=== PATIENT | female | born 1940 | race American Indian/Alaskan Native ===

== ENCOUNTER 2019-08-30 17:14 | Inpatient (IN) | payer MEDICARE ==
--- NOTE | 2019-08-30 17:21 | Event Note ---
ED Screening Note Date of service: 08/30/19 Time: 17:17 ED Screening Note: 78 y o female with stage 3 kidney dz not on dialysis sent here by [facility] for low [address] [facility] This initial assessment/diagnostic orders/clinical plan/treatment(s) is/are subject to change based on patients health status, clinical progression and re- assessment by fellow clinical providers in the ED. Further treatment and workup at subsequent clinical providers discretion. Patient/guardian urged not to elope from the ED as their condition may be serious if not clinically assessed and managed. Initial orders include: ekg, labs
[2019-08-30 18:36] LABS: Hematocrit 37.8 % (30.3-42.9); Hemoglobin 13.1 gm/dl (10.1-14.3); Mean Corpuscular HGB Conc 35 % (30-34); Mean Corpuscular Volume 98 fl (79-97); Platelet Count 110 K/mm3 (140-440); Red Blood Count 3.87 M/mm3 (3.65-5.03); Red Cell Distribution Width 15.4 % (13.2-15.2)
[2019-08-30 18:49] LABS: Albumin 3.8 g/dL (3.9-5)
[2019-08-30 19:15] LABS: Basophils % (Manual) 0 % (0.0-1.8); Eosinophils % (Manual) 0 % (0.0-4.3); Platelet Estimate Consistent w Auto; Total Cells Counted 100
[2019-08-30 19:16] LABS: Ovalocytes Few; Target Cells 1+
[2019-08-30] MEDS ORDERED: POTASSIUM CHLORIDE ER 20 MEQ TAB PO ONE (22:22)
[2019-08-30] MEDS ORDERED: SODIUM CHLORIDE 0.9% 500 ML 500 ML IV ONE (22:23)
[2019-08-30] MEDS ORDERED: SODIUM CHLORIDE 0.9% 1000 ML 1,000 ML ONE (22:41)
[2019-08-30] MEDS: POTASSIUM CHLORIDE 10 MEQ 10 MEQ/100 ML BAG IV SCH (23:09)
--- NOTE | 2019-08-30 23:12 | Emergency Department Report ---
ED General Adult HPI - General Chief complaint: Recheck/Abnormal Lab/Rx Stated complaint: ABNORMAL LABS Time Seen by Provider: 08/30/19 22:21 Source: patient, family Mode of arrival: Ambulatory Limitations: No Limitations - History of Present Illness Initial comments: 78-year-old female of hypertension, CHF (on lasix and metolazone), and chronic atrial fibrillation on Xarelto presents to the hospital with complaints of hypokalemia. Patient had outpatient lab draw in preparation upcoming visit with Dr. Gunter in September. She received a call to go to the ER because her potassium is low. Patient denies muscle cramps, weakness, or any other symptoms and feels fine. She has leg edema which is chronic and unchanged. She denies shortness of breath. She's been compliant with her medications. PMD : [place] Diallo: Dr Gunter - Related Data Home Medications Medication Instructions Recorded Confirmed Last Taken Metoprolol Xl [Toprol Xl] 50 mg PO QDAY 07/01/13 07/01/13 Unknown amLODIPine [Norvasc] 10 mg PO DAILY 07/01/13 07/01/13 Unknown hydrALAZINE [Apresoline] 50 mg PO Q12H 07/01/13 07/01/13 Unknown Previous Rx's Medication Instructions Recorded Last Taken Type Meclizine [Antivert] 25 mg PO TID PRN #30 tablet 07/02/13 Unknown Rx Allergies Allergy/AdvReac Type Severity Reaction Status Date / Time Iupiffh-Qxt-Llu Reductase Allergy Unknown Verified 08/30/19 17:15 Inhibitor ED Review of Systems ROS: Stated complaint: ABNORMAL LABS Other details as noted in HPI Comment: All other systems reviewed and negative ED Past Medical Hx - Past Medical History Hx Hypertension: Yes Additional medical history: enlarged heart - Surgical History Additional Surgical History: hernia repair, csections, hyst - Social History Smoking Status: Never Smoker Substance Use Type: None - Medications Home Medications: Home Medications Medication Instructions Recorded Confirmed Last Taken Type Metoprolol Xl [Toprol Xl] 50 mg PO QDAY 07/01/13 07/01/13 Unknown History amLODIPine [Norvasc] 10 mg PO DAILY 07/01/13 07/01/13 Unknown History hydrALAZINE [Apresoline] 50 mg PO Q12H 07/01/13 07/01/13 Unknown History Meclizine [Antivert] 25 mg PO TID PRN #30 tablet 07/02/13 Unknown Rx ED Physical Exam - General Limitations: No Limitations - Other Other exam information: General: No acute distress Head: Atraumatic Eyes: normal appearance ENT: Moist mucous membranes Neck: Normal appearance, no midline tenderness Chest: Clear to auscultation bilaterally CV: Regular rate and rhythm Abdomen: Soft, normal bowel sounds, nontender, nondistended, no rebound or guarding Back: Normal inspection Extremity: b/l leg edema, full range of motion Neuro: Alert O x 3, no facial asymmetry, speech clear, no gross motor sensory deficit Psych: Appropriate behavior Skin: No rash ED Course Vital Signs 08/30/19 08/30/19 17:17 23:10 Temperature 97.5 F L 98.3 F Pulse Rate 60 53 L Respiratory 18 12 Rate Blood Pressure 134/74 Blood Pressure 133/57 [Left] O2 Sat by Pulse 99 97 Oximetry ED Medical Decision Making - Lab Data Result diagrams: 08/30/19 18:24 08/30/19 18:24 Lab Results 08/30/19 08/30/19 08/30/19 Range/Units 18:24 18:24 18:24 WBC 3.4 L (4.5-11.0) K/mm3 RBC 3.87 (3.65-5.03) M/mm3 Hgb 13.1 (10.1-14.3) gm/dl Hct 37.8 (30.3-42.9) % MCV 98 H (79-97) fl MCH 34 H (28-32) pg MCHC 35 H (30-34) % RDW 15.4 H (13.2-15.2) % Plt Count 110 L (140-440) K/mm3 Add Manual Diff Complete Total Counted 100 Seg Neuts % (Manual) 67.0 (40.0-70.0) % Band Neutrophils % 0 % Lymphocytes % (Manual) 21.0 (13.4-35.0) % Reactive Lymphs % (Man) 0 % Monocytes % (Manual) 12.0 H (0.0-7.3) % Eosinophils % (Manual) 0 (0.0-4.3) % Basophils % (Manual) 0 (0.0-1.8) % Metamyelocytes % 0 % Myelocytes % 0 % Promyelocytes % 0 % Blast Cells % 0 % Nucleated RBC % Not Reportable Seg Neutrophils # Man 2.3 (1.8-7.7) K/mm3 Band Neutrophils # 0.0 K/mm3 Lymphocytes # (Manual) 0.7 L (1.2-5.4) K/mm3 Abs React Lymphs (Man) 0.0 K/mm3 Monocytes # (Manual) 0.4 (0.0-0.8) K/mm3 Eosinophils # (Manual) 0.0 (0.0-0.4) K/mm3 Basophils # (Manual) 0.0 (0.0-0.1) K/mm3 Metamyelocytes # 0.0 K/mm3 Myelocytes # 0.0 K/mm3 Promyelocytes # 0.0 K/mm3 Blast Cells # 0.0 K/mm3 WBC Morphology Not Reportable Hypersegmented Neuts Not Reportable Hyposegmented Neuts Not Reportable Hypogranular Neuts Not Reportable Smudge Cells Not Reportable Toxic Granulation Not Reportable Toxic Vacuolation Not Reportable Dohle Bodies Not Reportable Pelger-Huet Anomaly Not Reportable Sameer Rods Not Reportable Platelet Estimate Consistent w auto Clumped Platelets Not Reportable Plt Clumps, EDTA Not Reportable Large Platelets Not Reportable Giant Platelets Not Reportable Platelet Satelliting Not Reportable Plt Morphology Comment Not Reportable RBC Morphology Not Reportable Dimorphic RBCs Not Reportable Polychromasia Not Reportable Hypochromasia Not Reportable Poikilocytosis Not Reportable Anisocytosis Not Reportable Microcytosis Not Reportable Macrocytosis Not Reportable Spherocytes Not Reportable Pappenheimer Bodies Not Reportable Sickle Cells Not Reportable Target Cells 1+ Tear Drop Cells Not Reportable Ovalocytes Few Helmet Cells Not Reportable Leonardo-[place] Bodies Not Reportable [place] Rings Not Reportable Vania Cells Not Reportable Bite Cells Not Reportable Crenated Cell Not Reportable Elliptocytes Not Reportable Acanthocytes (Spur) Not Reportable Rouleaux Not Reportable Hemoglobin C Crystals Not Reportable Schistocytes Not Reportable Malaria parasites Not Reportable Yahir Bodies Not Reportable Hem Pathologist Commnt No Sodium 132 L (137-145) mmol/L Potassium 2.2 L* (3.6-5.0) mmol/L Chloride 85.5 L (98-107) mmol/L Carbon Dioxide 28 (22-30) mmol/L Anion Gap 21 mmol/L BUN 27 H (7-17) mg/dL Creatinine 1.2 (0.7-1.2) mg/dL Estimated GFR 52 ml/min BUN/Creatinine Ratio 23 % Glucose 139 H (65-100) mg/dL Calcium 9.0 (8.4-10.2) mg/dL Magnesium 2.20 (1.7-2.3) mg/dL Total Bilirubin 3.20 H (0.1-1.2) mg/dL AST 57 H (5-40) units/L ALT 17 (7-56) units/L Alkaline Phosphatase 132 H (35-129) units/L Total Protein 7.7 (6.3-8.2) g/dL Albumin 3.8 L (3.9-5) g/dL Albumin/Globulin Ratio 1.0 % - EKG Data -: EKG Interpreted by Me (afib) Rate: normal (64) - Medical Decision Making Is presents to the hospital with asymptomatic hypokalemia. Hypokalemia is significant for likely secondary to diuretics. Patient treated with by mouth and IV potassium. Normal saline ordered to be given KVO when necessary burning with potassium administration. Case discussed with instructor wastewater treatment plant recommends admission. Hospitalist informed - Differential Diagnosis renal disease, diuretic use Critical Care Time: No Critical care attestation.: If time is entered above; I have spent that time in minutes in the direct care of this critically ill patient, excluding procedure time. ED Disposition Clinical Impression: Diuretic-induced hypokalemia, History of CHF (congestive heart failure), Chronic atrial fibrillation, Chronic anticoagulation Disposition: OP ADMIT IP TO THIS HOSP Is pt being admited?: Yes Condition: Stable Time of Disposition: 23:12 (Dr Montemayor/hosp)
[2019-08-30] MEDS ORDERED: POTASSIUM CHLORIDE 20 MEQ PACKET FEEDTUBE ONE (23:41)
[2019-08-30] MEDS ORDERED: ONDANSETRON 4 MG/2 ML INJ IV PRN (23:48)
[2019-08-30] MEDS ORDERED: ACETAMINOPHEN 325 MG TAB PO PRN (23:48)
--- NOTE | 2019-08-31 00:10 | History and Physical Report ---
<MEHNAZ NORRIS - Last Filed: 08/31/19 00:11> History of Present Illness Date of examination: 08/30/19 Date of admission: 08/30/2019 Chief complaint: Abnormal Labs (hypokalemia) History of present illness: 78 -year-old -[place] female with history of CHF, hypertension, A. fib on anticoagulation who presents to [facility] ED with complaints of hypokalemia. Pt recently completed outpatient labs in preparation for upcoming appointment with Carton Stamper (Dr. Gunter). Pt was found to be profoundly hypokalemic with potassium of 2.2. Pt is asymptomatic. She denies SOB, chest pain, palpitations, or muscle aches.cramps. She was advise to [facility] ED for further evaluation and treatment. Her PCP is Dr. Migel Castaneda. Past History Past Medical History: atrial fib (on Xarelto), heart failure, hypertension Past Surgical History: (cyst removal), hernia repair Social history: lives with family Family history: no significant family history Medications and Allergies Allergies Allergy/AdvReac Type Severity Reaction Status Date / Time Daiuskc-Vlf-Lkz Reductase Allergy Unknown Verified 08/30/19 17:15 Inhibitor Home Medications Medication Instructions Recorded Confirmed Last Taken Type Metoprolol Xl [Toprol Xl] 25 mg PO QDAY 07/01/13 08/31/19 Unknown History hydrALAZINE [Apresoline] 50 mg PO Q12H 07/01/13 08/31/19 Unknown History Furosemide [Lasix TAB] 1 tab PO DAILY 08/31/19 08/31/19 Unknown History Potassium Chloride [K-Dur] 1 tab PO DAILY 08/31/19 08/31/19 Unknown History Rivaroxaban [Xarelto] 1 tab PO DAILY 08/31/19 08/31/19 Unknown History metOLazone [Zaroxolyn] 1 tab PO DAILY 08/31/19 08/31/19 Unknown History Active Meds: Active Medications Acetaminophen (Tylenol) 650 mg PO Q4H PRN PRN Reason: Pain MILD(1-3)/Fever >100.5/IGLESIAS Potassium Chloride (Kcl 10meq/100ml) 10 meq in 100 mls @ 100 mls/hr IV Q1H HUNETR Stop: 08/31/19 00:59 Last Admin: 08/30/19 23:09 Dose: 100 mls/hr Documented by: Ondansetron HCl (Zofran) 4 mg IV Q6H PRN PRN Reason: Nausea And Vomiting Sodium Chloride (Sodium Chloride Flush Syringe 10 Ml) 10 ml IV BID HUNTER Sodium Chloride (Sodium Chloride Flush Syringe 10 Ml) 10 ml IV PRN PRN PRN Reason: LINE FLUSH Review of Systems All systems: negative Constitutional: weakness Cardiovascular: leg edema Exam - Physical Exam Narrative exam: Physical exam General appearance: Present: No acute distress, alert and oriented 3 within, well-developed, pleasant, older adult -Ind[place]ian female - EENT Eyes: Present: PERRL, EOM intact ENT: hearing intact, normal dentition - Neck Neck: Present: supple, normal ROM - Respiratory Respiratory effort: Non-labored Respiratory: Diminished bases - Cardiovascular Heart rate: 64(bpm) Rhythm: A. fib Heart Sounds: Present: S1 & S2. Absent: rub, click - Extremities Extremities: no ischemia, pulses intact, chronic ble pitting edema - Peripheral Assessment Peripheral Pulses: within normal limits - Abdominal General gastrointestinal: soft, non-tender, normal bowel sounds - Integumentary Integumentary: Present: warm, dry - Musculoskeletal Musculoskeletal: Able to move all extremities -Neurological Neurological: CN II-XII intact - Psychiatric Psychiatric: Appropriate for situation ,cooperative - Constitutional Vitals: Temp Pulse Resp BP Pulse Ox 98.3 F 57 L 16 133/57 98 08/30/19 23:10 08/30/19 23:16 08/30/19 23:16 08/30/19 23:16 08/30/19 23:16 Results - Labs CBC & Chem 7: 08/30/19 18:24 08/30/19 18:24 Labs: Laboratory Last Values WBC 3.4 K/mm3 (4.5-11.0) L 08/30/19 18:24 RBC 3.87 M/mm3 (3.65-5.03) 08/30/19 18:24 Hgb 13.1 gm/dl (10.1-14.3) 08/30/19 18:24 Hct 37.8 % (30.3-42.9) 08/30/19 18:24 MCV 98 fl (79-97) H 08/30/19 18:24 MCH 34 pg (28-32) H 08/30/19 18:24 MCHC 35 % (30-34) H 08/30/19 18:24 RDW 15.4 % (13.2-15.2) H 08/30/19 18:24 Plt Count 110 K/mm3 (140-440) L 08/30/19 18:24 Add Manual Diff Complete 08/30/19 18:24 Total Counted 100 08/30/19 18:24 Seg Neuts % (Manual) 67.0 % (40.0-70.0) 08/30/19 18:24 Band Neutrophils % 0 % 08/30/19 18:24 Lymphocytes % (Manual) 21.0 % (13.4-35.0) 08/30/19 18:24 Reactive Lymphs % (Man) 0 % 08/30/19 18:24 Monocytes % (Manual) 12.0 % (0.0-7.3) H 08/30/19 18:24 Eosinophils % (Manual) 0 % (0.0-4.3) 08/30/19 18:24 Basophils % (Manual) 0 % (0.0-1.8) 08/30/19 18:24 Metamyelocytes % 0 % 08/30/19 18:24 Myelocytes % 0 % 08/30/19 18:24 Promyelocytes % 0 % 08/30/19 18:24 Blast Cells % 0 % 08/30/19 18:24 Nucleated RBC % Not Reportable 08/30/19 18:24 Seg Neutrophils # Man 2.3 K/mm3 (1.8-7.7) 08/30/19 18:24 Band Neutrophils # 0.0 K/mm3 08/30/19 18:24 Lymphocytes # (Manual) 0.7 K/mm3 (1.2-5.4) L 08/30/19 18:24 Abs React Lymphs (Man) 0.0 K/mm3 08/30/19 18:24 Monocytes # (Manual) 0.4 K/mm3 (0.0-0.8) 08/30/19 18:24 Eosinophils # (Manual) 0.0 K/mm3 (0.0-0.4) 08/30/19 18:24 Basophils # (Manual) 0.0 K/mm3 (0.0-0.1) 08/30/19 18:24 Metamyelocytes # 0.0 K/mm3 08/30/19 18:24 Myelocytes # 0.0 K/mm3 08/30/19 18:24 Promyelocytes # 0.0 K/mm3 08/30/19 18:24 Blast Cells # 0.0 K/mm3 08/30/19 18:24 WBC Morphology Not Reportable 08/30/19 18:24 Hypersegmented Neuts Not Reportable 08/30/19 18:24 Hyposegmented Neuts Not Reportable 08/30/19 18:24 Hypogranular Neuts Not Reportable 08/30/19 18:24 Smudge Cells Not Reportable 08/30/19 18:24 Toxic Granulation Not Reportable 08/30/19 18:24 Toxic Vacuolation Not Reportable 08/30/19 18:24 Dohle Bodies Not Reportable 08/30/19 18:24 Pelger-Huet Anomaly Not Reportable 08/30/19 18:24 Sameer Rods Not Reportable 08/30/19 18:24 Platelet Estimate Consistent w auto 08/30/19 18:24 Clumped Platelets Not Reportable 08/30/19 18:24 Plt Clumps, EDTA Not Reportable 08/30/19 18:24 Large Platelets Not Reportable 08/30/19 18:24 Giant Platelets Not Reportable 08/30/19 18:24 Platelet Satelliting Not Reportable 08/30/19 18:24 Plt Morphology Comment Not Reportable 08/30/19 18:24 RBC Morphology Not Reportable 08/30/19 18:24 Dimorphic RBCs Not Reportable 08/30/19 18:24 Polychromasia Not Reportable 08/30/19 18:24 Hypochromasia Not Reportable 08/30/19 18:24 Poikilocytosis Not Reportable 08/30/19 18:24 Anisocytosis Not Reportable 08/30/19 18:24 Microcytosis Not Reportable 08/30/19 18:24 Macrocytosis Not Reportable 08/30/19 18:24 Spherocytes Not Reportable 08/30/19 18:24 Pappenheimer Bodies Not Reportable 08/30/19 18:24 Sickle Cells Not Reportable 08/30/19 18:24 Target Cells 1+ 08/30/19 18:24 Tear Drop Cells Not Reportable 08/30/19 18:24 Ovalocytes Few 08/30/19 18:24 Helmet Cells Not Reportable 08/30/19 18:24 Leonardo-[place] Bodies Not Reportable 08/30/19 18:24 [place] Rings Not Reportable 08/30/19 18:24 [place]wood Cells Not Reportable 08/30/19 18:24 Bite Cells Not Reportable 08/30/19 18:24 Crenated Cell Not Reportable 08/30/19 18:24 Elliptocytes Not Reportable 08/30/19 18:24 Acanthocytes (Spur) Not Reportable 08/30/19 18:24 Rouleaux Not Reportable 08/30/19 18:24 Hemoglobin C Crystals Not Reportable 08/30/19 18:24 Schistocytes Not Reportable 08/30/19 18:24 Malaria parasites Not Reportable 08/30/19 18:24 Yahir Bodies Not Reportable 08/30/19 18:24 Hem Pathologist Commnt No 08/30/19 18:24 Sodium 132 mmol/L (137-145) L 08/30/19 18:24 Potassium 2.2 mmol/L (3.6-5.0) L* 08/30/19 18:24 Chloride 85.5 mmol/L (98-107) L 08/30/19 18:24 Carbon Dioxide 28 mmol/L (22-30) 08/30/19 18:24 Anion Gap 21 mmol/L 08/30/19 18:24 BUN 27 mg/dL (7-17) H 08/30/19 18:24 Creatinine 1.2 mg/dL (0.7-1.2) 08/30/19 18:24 Estimated GFR 52 ml/min 08/30/19 18:24 BUN/Creatinine Ratio 23 % 08/30/19 18:24 Glucose 139 mg/dL (65-100) H 08/30/19 18:24 Calcium 9.0 mg/dL (8.4-10.2) 08/30/19 18:24 Magnesium 2.20 mg/dL (1.7-2.3) 08/30/19 18:24 Total Bilirubin 3.20 mg/dL (0.1-1.2) H 08/30/19 18:24 AST 57 units/L (5-40) H 08/30/19 18:24 ALT 17 units/L (7-56) 08/30/19 18:24 Alkaline Phosphatase 132 units/L (35-129) H 08/30/19 18:24 Total Protein 7.7 g/dL (6.3-8.2) 08/30/19 18:24 Albumin 3.8 g/dL (3.9-5) L 08/30/19 18:24 Albumin/Globulin Ratio 1.0 % 08/30/19 18:24 Assessment and Plan Assessment and plan: 78 -year-old -[place] female with history of CHF, hypertension, A. fib on anticoagulation who presents to [facility] ED with complaints of hypokalemia. Hypokalemia -Potassium on admission 2.2 -Received by mouth potassium 40 mEq X2, and IV potassium 20 mEq -Likely due to chronic Lasix and metolazone use -Continue to monitor replete prn -Continuous telemetry monitoring -Neurology consultation Hyponatremia -Likely pseudohyponatremia due to chronic diuretic use -mild Na 132 -Monitor I's and O's -Continue to monitor electrolyte and repleate prn HTN -Monitor BP -Resume home hypertensive meds once medication reconciliation has been updated A-fib -Anticoagulated on Xarelto Hx CHF -Resume HF meds once medication reconciliation has been updated DVT PPX -on Xarelto and SCD's Advance Directives: No VTE prophylaxis?: Chemical Plan of care discussed with patient/family: Yes <ALBA ROTH - Last Filed: 08/31/19 01:41> History of Present Illness Date of admission: 08/30/19 23:48 Medications and Allergies Active Meds: Active Medications Acetaminophen (Tylenol) 650 mg PO Q4H PRN PRN Reason: Pain MILD(1-3)/Fever >100.5/IGLESIAS Potassium Chloride (Kcl 10meq/100ml) 10 meq in 100 mls @ 100 mls/hr IV Q1H HUNTER Stop: 08/31/19 03:59 Ondansetron HCl (Zofran) 4 mg IV Q6H PRN PRN Reason: Nausea And Vomiting Sodium Chloride (Sodium Chloride Flush Syringe 10 Ml) 10 ml IV BID HUNTER Sodium Chloride (Sodium Chloride Flush Syringe 10 Ml) 10 ml IV PRN PRN PRN Reason: LINE FLUSH Exam - Constitutional Vitals: Temp Pulse Resp BP Pulse Ox 98.3 F 57 L 16 133/57 98 08/30/19 23:10 08/30/19 23:16 08/30/19 23:16 08/30/19 23:16 08/30/19 23:16 Results - Labs CBC & Chem 7: 08/30/19 18:24 08/30/19 18:24 Labs: Laboratory Last Values WBC 3.4 K/mm3 (4.5-11.0) L 08/30/19 18:24 RBC 3.87 M/mm3 (3.65-5.03) 08/30/19 18:24 Hgb 13.1 gm/dl (10.1-14.3) 08/30/19 18:24 Hct 37.8 % (30.3-42.9) 08/30/19 18:24 MCV 98 fl (79-97) H 08/30/19 18:24 MCH 34 pg (28-32) H 08/30/19 18:24 MCHC 35 % (30-34) H 08/30/19 18:24 RDW 15.4 % (13.2-15.2) H 08/30/19 18:24 Plt Count 110 K/mm3 (140-440) L 08/30/19 18:24 Add Manual Diff Complete 08/30/19 18:24 Total Counted 100 08/30/19 18:24 Seg Neuts % (Manual) 67.0 % (40.0-70.0) 08/30/19 18:24 Band Neutrophils % 0 % 08/30/19 18:24 Lymphocytes % (Manual) 21.0 % (13.4-35.0) 08/30/19 18:24 Reactive Lymphs % (Man) 0 % 08/30/19 18:24 Monocytes % (Manual) 12.0 % (0.0-7.3) H 08/30/19 18:24 Eosinophils % (Manual) 0 % (0.0-4.3) 08/30/19 18:24 Basophils % (Manual) 0 % (0.0-1.8) 08/30/19 18:24 Metamyelocytes % 0 % 08/30/19 18:24 Myelocytes % 0 % 08/30/19 18:24 Promyelocytes % 0 % 08/30/19 18:24 Blast Cells % 0 % 08/30/19 18:24 Nucleated RBC % Not Reportable 08/30/19 18:24 Seg Neutrophils # Man 2.3 K/mm3 (1.8-7.7) 08/30/19 18:24 Band Neutrophils # 0.0 K/mm3 08/30/19 18:24 Lymphocytes # (Manual) 0.7 K/mm3 (1.2-5.4) L 08/30/19 18:24 Abs React Lymphs (Man) 0.0 K/mm3 08/30/19 18:24 Monocytes # (Manual) 0.4 K/mm3 (0.0-0.8) 08/30/19 18:24 Eosinophils # (Manual) 0.0 K/mm3 (0.0-0.4) 08/30/19 18:24 Basophils # (Manual) 0.0 K/mm3 (0.0-0.1) 08/30/19 18:24 Metamyelocytes # 0.0 K/mm3 08/30/19 18:24 Myelocytes # 0.0 K/mm3 08/30/19 18:24 Promyelocytes # 0.0 K/mm3 08/30/19 18:24 Blast Cells # 0.0 K/mm3 08/30/19 18:24 WBC Morphology Not Reportable 08/30/19 18:24 Hypersegmented Neuts Not Reportable 08/30/19 18:24 Hyposegmented Neuts Not Reportable 08/30/19 18:24 Hypogranular Neuts Not Reportable 08/30/19 18:24 Smudge Cells Not Reportable 08/30/19 18:24 Toxic Granulation Not Reportable 08/30/19 18:24 Toxic Vacuolation Not Reportable 08/30/19 18:24 Dohle Bodies Not Reportable 08/30/19 18:24 Pelger-Huet Anomaly Not Reportable 08/30/19 18:24 Sameer Rods Not Reportable 08/30/19 18:24 Platelet Estimate Consistent w auto 08/30/19 18:24 Clumped Platelets Not Reportable 08/30/19 18:24 Plt Clumps, EDTA Not Reportable 08/30/19 18:24 Large Platelets Not Reportable 08/30/19 18:24 Giant Platelets Not Reportable 08/30/19 18:24 Platelet Satelliting Not Reportable 08/30/19 18:24 Plt Morphology Comment Not Reportable 08/30/19 18:24 RBC Morphology Not Reportable 08/30/19 18:24 Dimorphic RBCs Not Reportable 08/30/19 18:24 Polychromasia Not Reportable 08/30/19 18:24 Hypochromasia Not Reportable 08/30/19 18:24 Poikilocytosis Not Reportable 08/30/19 18:24 Anisocytosis Not Reportable 08/30/19 18:24 Microcytosis Not Reportable 08/30/19 18:24 Macrocytosis Not Reportable 08/30/19 18:24 Spherocytes Not Reportable 08/30/19 18:24 Pappenheimer Bodies Not Reportable 08/30/19 18:24 Sickle Cells Not Reportable 08/30/19 18:24 Target Cells 1+ 08/30/19 18:24 Tear Drop Cells Not Reportable 08/30/19 18:24 Ovalocytes Few 08/30/19 18:24 Helmet Cells Not Reportable 08/30/19 18:24 Leonardo-Flagstaff Bodies Not Reportable 08/30/19 18:24 [place] Rings Not Reportable 08/30/19 18:24 [place] Cells Not Reportable 08/30/19 18:24 Bite Cells Not Reportable 08/30/19 18:24 Crenated Cell Not Reportable 08/30/19 18:24 Elliptocytes Not Reportable 08/30/19 18:24 Acanthocytes (Spur) Not Reportable 08/30/19 18:24 Rouleaux Not Reportable 08/30/19 18:24 Hemoglobin C Crystals Not Reportable 08/30/19 18:24 Schistocytes Not Reportable 08/30/19 18:24 Malaria parasites Not Reportable 08/30/19 18:24 Yahir Bodies Not Reportable 08/30/19 18:24 Hem Pathologist Commnt No 08/30/19 18:24 Sodium 132 mmol/L (137-145) L 08/30/19 18:24 Potassium 2.2 mmol/L (3.6-5.0) L* 08/30/19 18:24 Chloride 85.5 mmol/L (98-107) L 08/30/19 18:24 Carbon Dioxide 28 mmol/L (22-30) 08/30/19 18:24 Anion Gap 21 mmol/L 08/30/19 18:24 BUN 27 mg/dL (7-17) H 08/30/19 18:24 Creatinine 1.2 mg/dL (0.7-1.2) 08/30/19 18:24 Estimated GFR 52 ml/min 08/30/19 18:24 BUN/Creatinine Ratio 23 % 08/30/19 18:24 Glucose 139 mg/dL (65-100) H 08/30/19 18:24 Calcium 9.0 mg/dL (8.4-10.2) 08/30/19 18:24 Magnesium 2.20 mg/dL (1.7-2.3) 08/30/19 18:24 Total Bilirubin 3.20 mg/dL (0.1-1.2) H 08/30/19 18:24 AST 57 units/L (5-40) H 08/30/19 18:24 ALT 17 units/L (7-56) 08/30/19 18:24 Alkaline Phosphatase 132 units/L (35-129) H 08/30/19 18:24 Total Protein 7.7 g/dL (6.3-8.2) 08/30/19 18:24 Albumin 3.8 g/dL (3.9-5) L 08/30/19 18:24 Albumin/Globulin Ratio 1.0 % 08/30/19 18:24 Assessment and Plan Assessment and plan: 78-year-old woman with a history of A. fib, CHF, hypertension was sent to the emergency room for evaluation for hypokalemia. Potassium repletion, agree with plan as stated above
[2019-08-31] MEDS: POTASSIUM CHLORIDE 10 MEQ 10 MEQ/100 ML BAG IV SCH ×5 (00:24→15:38)
[2019-08-31 05:26] LABS: Hemoglobin 12.2 gm/dl (10.1-14.3); Mean Corpuscular HGB Conc 34 % (30-34); Mean Corpuscular Volume 99 fl (79-97); Platelet Count 112 K/mm3 (140-440); Red Blood Count 3.66 M/mm3 (3.65-5.03); Red Cell Distribution Width 15.6 % (13.2-15.2)
[2019-08-31 05:48] LABS: Calcium 9.2 mg/dL (8.4-10.2)
[2019-08-31 06:17] LABS: Total Cells Counted 100
[2019-08-31 06:19] LABS: Anisocytosis Few
[2019-08-31 06:20] LABS: Large Platelets Few; Platelet Estimate Cons
[2019-08-31] MEDS ORDERED: METOPROLOL SUCCINATE XL 25 MG TAB PO SCH (10:00)
[2019-08-31] MEDS ORDERED: hydrALAZINE 25 MG TAB PO SCH (10:00)
--- NOTE | 2019-08-31 11:57 | Progress Note ---
Assessment and Plan Assessment and plan: Severe Hypokalemia -Likely due to chronic Lasix and metolazone use -Level improving on repletion, will monitor -Nephrology consulted Hyponatremia -Likely pseudohyponatremia due to chronic diuretic use -Level improved HTN -BP low normal -will hold her home BB and hydralazine -will monitor BP Chronic A-fib -pt is currently bradycardic, will hold her home BB -cont Xarelto Hx CHF with unknown EF -No acute exacerbation -Home medications on hold Leukopenia/thrombocytopenia -Will monitor levels DVT PPX -on Xarelto and SCD's Disposition: For possible discharge in 1-2 days if clinically stable History Interval history: Patient reports feeling better today. She has no new complaints. Hospitalist Physical - Constitutional Vitals: Temp Pulse Resp BP Pulse Ox 98.5 F 52 L 18 102/54 94 08/31/19 07:24 08/31/19 07:24 08/31/19 07:24 08/31/19 07:24 08/31/19 07:24 General appearance: Present: no acute distress - EENT Eyes: Present: PERRL, EOM intact ENT: hearing intact, clear oral mucosa - Neck Neck: Present: supple - Respiratory Respiratory: bilateral: CTA - Cardiovascular Rhythm: irregularly irregular Heart Sounds: Present: S1 & S2 - Extremities Extremity abnormal: edema (in BLE) - Abdominal General gastrointestinal: soft, non-tender, normal bowel sounds - Integumentary Integumentary: Present: warm, dry - Psychiatric Psychiatric: cooperative - Neurologic Neurologic: moves all extremities Results - Labs CBC & Chem 7: 08/31/19 04:50 08/31/19 04:50 Labs: Laboratory Last Values WBC 3.0 K/mm3 (4.5-11.0) L 08/31/19 04:50 RBC 3.66 M/mm3 (3.65-5.03) 08/31/19 04:50 Hgb 12.2 gm/dl (10.1-14.3) 08/31/19 04:50 Hct 36.0 % (30.3-42.9) 08/31/19 04:50 MCV 99 fl (79-97) H 08/31/19 04:50 MCH 33 pg (28-32) H 08/31/19 04:50 MCHC 34 % (30-34) 08/31/19 04:50 RDW 15.6 % (13.2-15.2) H 08/31/19 04:50 Plt Count 112 K/mm3 (140-440) L 08/31/19 04:50 Stearns % (Auto) Doctor Of Veterinary Medicine 08/31/19 04:50 Add Manual Diff Complete 08/31/19 04:50 Total Counted 100 08/31/19 04:50 Seg Neuts % (Manual) 48.0 % (40.0-70.0) 08/31/19 04:50 Band Neutrophils % 0 % 08/31/19 04:50 Lymphocytes % (Manual) 34.0 % (13.4-35.0) 08/31/19 04:50 Reactive Lymphs % (Man) 0 % 08/31/19 04:50 Monocytes % (Manual) 14.0 % (0.0-7.3) H 08/31/19 04:50 Eosinophils % (Manual) 2.0 % (0.0-4.3) 08/31/19 04:50 Basophils % (Manual) 2.0 % (0.0-1.8) H 08/31/19 04:50 Metamyelocytes % 0 % 08/31/19 04:50 Myelocytes % 0 % 08/31/19 04:50 Promyelocytes % 0 % 08/31/19 04:50 Blast Cells % 0 % 08/31/19 04:50 Nucleated RBC % Not Reportable 08/31/19 04:50 Seg Neutrophils # Man 1.4 K/mm3 (1.8-7.7) L 08/31/19 04:50 Band Neutrophils # 0.0 K/mm3 08/31/19 04:50 Lymphocytes # (Manual) 1.0 K/mm3 (1.2-5.4) L 08/31/19 04:50 Abs React Lymphs (Man) 0.0 K/mm3 08/31/19 04:50 Monocytes # (Manual) 0.4 K/mm3 (0.0-0.8) 08/31/19 04:50 Eosinophils # (Manual) 0.1 K/mm3 (0.0-0.4) 08/31/19 04:50 Basophils # (Manual) 0.1 K/mm3 (0.0-0.1) 08/31/19 04:50 Metamyelocytes # 0.0 K/mm3 08/31/19 04:50 Myelocytes # 0.0 K/mm3 08/31/19 04:50 Promyelocytes # 0.0 K/mm3 08/31/19 04:50 Blast Cells # 0.0 K/mm3 08/31/19 04:50 WBC Morphology Not Reportable 08/31/19 04:50 Hypersegmented Neuts Not Reportable 08/31/19 04:50 Hyposegmented Neuts Not Reportable 08/31/19 04:50 Hypogranular Neuts Not Reportable 08/31/19 04:50 Smudge Cells Not Reportable 08/31/19 04:50 Toxic Granulation Not Reportable 08/31/19 04:50 Toxic Vacuolation Not Reportable 08/31/19 04:50 Dohle Bodies Not Reportable 08/31/19 04:50 Pelger-Huet Anomaly Not Reportable 08/31/19 04:50 Sameer Rods Not Reportable 08/31/19 04:50 Platelet Estimate Cons 08/31/19 04:50 Clumped Platelets Not Reportable 08/31/19 04:50 Plt Clumps, EDTA Not Reportable 08/31/19 04:50 Large Platelets Few 08/31/19 04:50 Giant Platelets Not Reportable 08/31/19 04:50 Platelet Satelliting Not Reportable 08/31/19 04:50 Plt Morphology Comment Not Reportable 08/31/19 04:50 RBC Morphology Not Reportable 08/31/19 04:50 Dimorphic RBCs Not Reportable 08/31/19 04:50 Polychromasia Not Reportable 08/31/19 04:50 Hypochromasia Not Reportable 08/31/19 04:50 Poikilocytosis Not Reportable 08/31/19 04:50 Anisocytosis Few 08/31/19 04:50 Microcytosis Not Reportable 08/31/19 04:50 Macrocytosis Not Reportable 08/31/19 04:50 Spherocytes Not Reportable 08/31/19 04:50 Pappenheimer Bodies Not Reportable 08/31/19 04:50 Sickle Cells Not Reportable 08/31/19 04:50 Target Cells Not Reportable 08/31/19 04:50 Tear Drop Cells Not Reportable 08/31/19 04:50 Ovalocytes Not Reportable 08/31/19 04:50 Helmet Cells Not Reportable 08/31/19 04:50 Leonardo-Alzada Bodies Not Reportable 08/31/19 04:50 [place] Rings Not Reportable 08/31/19 04:50 [place] Cells Not Reportable 08/31/19 04:50 Bite Cells Not Reportable 08/31/19 04:50 Crenated Cell Not Reportable 08/31/19 04:50 Elliptocytes Not Reportable 08/31/19 04:50 Acanthocytes (Spur) Not Reportable 08/31/19 04:50 Rouleaux Not Reportable 08/31/19 04:50 Hemoglobin C Crystals Not Reportable 08/31/19 04:50 Schistocytes Not Reportable 08/31/19 04:50 Malaria parasites Not Reportable 08/31/19 04:50 Yahir Bodies Not Reportable 08/31/19 04:50 Hem Pathologist Commnt No 08/31/19 04:50 Sodium 135 mmol/L (137-145) L 08/31/19 04:50 Potassium 3.3 mmol/L (3.6-5.0) L D 08/31/19 04:50 Chloride 91.3 mmol/L (98-107) L 08/31/19 04:50 Carbon Dioxide 27 mmol/L (22-30) 08/31/19 04:50 Anion Gap 20 mmol/L 08/31/19 04:50 BUN 25 mg/dL (7-17) H 08/31/19 04:50 Creatinine 1.1 mg/dL (0.7-1.2) 08/31/19 04:50 Estimated GFR 58 ml/min 08/31/19 04:50 BUN/Creatinine Ratio 23 % 08/31/19 04:50 Glucose 87 mg/dL (65-100) 08/31/19 04:50 Calcium 9.2 mg/dL (8.4-10.2) 08/31/19 04:50 Magnesium 2.20 mg/dL (1.7-2.3) 08/30/19 18:24 Total Bilirubin 3.20 mg/dL (0.1-1.2) H 08/30/19 18:24 AST 57 units/L (5-40) H 08/30/19 18:24 ALT 17 units/L (7-56) 08/30/19 18:24 Alkaline Phosphatase 132 units/L (35-129) H 08/30/19 18:24 Total Protein 7.7 g/dL (6.3-8.2) 08/30/19 18:24 Albumin 3.8 g/dL (3.9-5) L 08/30/19 18:24 Albumin/Globulin Ratio 1.0 % 08/30/19 18:24 Active Medications - Current Medications Current Medications: Generic Name Dose Route Start Last Admin Trade Name Freq PRN Reason Stop Dose Admin Acetaminophen 650 mg 08/30/19 23:48 Tylenol PO Q4H PRN Pain MILD(1-3)/Fever >100.5/IGLESIAS Hydralazine HCl 50 mg 08/31/19 10:00 08/31/19 10:14 Apresoline PO 50 mg Q12HR HUNTER Administration Potassium Chloride 10 meq in 100 mls @ 100 mls/hr 08/31/19 12:00 Kcl 10meq/100ml IV 08/31/19 13:59 Q1H HUNTER Metoprolol Succinate 25 mg 08/31/19 10:00 08/31/19 10:14 Metoprolol Xl PO 25 mg QDAY HUNTER Administration Ondansetron HCl 4 mg 08/30/19 23:48 Zofran IV Q6H PRN Nausea And Vomiting Potassium Chloride 40 meq 08/31/19 12:19 K-Dur PO 08/31/19 12:20 ONCE ONE Rivaroxaban 15 mg 08/31/19 17:00 Xarelto PO DAILY@1700 [facility] Protocol Sodium Chloride 10 ml 08/31/19 10:00 08/31/19 10:14 Sodium Chloride Flush Syringe 10 Ml IV 10 ml BID HUNTER Administration Sodium Chloride 10 ml 08/30/19 23:48 Sodium Chloride Flush Syringe 10 Ml IV PRN PRN LINE FLUSH
[2019-08-31] MEDS ORDERED: POTASSIUM CHLORIDE ER 20 MEQ TAB PO ONE ×2 (12:19→15:23)
--- NOTE | 2019-08-31 14:19 | Consultation ---
History of Present Illness - Reason for Consult Consult date: 08/31/19 hypokalemia Requesting physician: MIGEL EDWARDS - History of Present Illness 78-year-old female of hypertension, CHF (on lasix and metolazone), and chronic atrial fibrillation on Xarelto presents to the hospital with complaints of hypokalemia. Patient had outpatient lab draw in preparation upcoming visit with Dr. Gunter in September. She received a call to go to the ER because her potassium is low. Patient denies muscle cramps, weakness, or any other symptoms and feels fine. She has leg edema which is chronic and unchanged. She denies shortness of breath. She's been compliant with her medications. PMD : Migel edwards, Nephro: Dr Gunter - Past Medical History Hx Hypertension: Yes Additional medical history: enlarged heart - Surgical History Additional Surgical History: hernia repair, csections, hyst - Social History Smoking Status: Never Smoker Substance Use Type: None - Past History Past Medical History: atrial fib (on Xarelto), heart failure, hypertension Past Surgical History: (cyst removal), hernia repair Social history: lives with family Family history: no significant family history Medications and Allergies Allergies Allergy/AdvReac Type Severity Reaction Status Date / Time Dgjgjkm-Oid-Yoy Reductase Allergy Unknown Verified 08/30/19 17:15 Inhibitor Home Medications Medication Instructions Recorded Confirmed Last Taken Type Metoprolol Xl [Toprol Xl] 25 mg PO QDAY 07/01/13 08/31/19 Unknown History hydrALAZINE [Apresoline] 50 mg PO Q12H 07/01/13 08/31/19 Unknown History Furosemide [Lasix TAB] 1 tab PO DAILY 08/31/19 08/31/19 Unknown History Potassium Chloride [K-Dur] 1 tab PO DAILY 08/31/19 08/31/19 Unknown History Rivaroxaban [Xarelto] 1 tab PO DAILY 08/31/19 08/31/19 Unknown History metOLazone [Zaroxolyn] 1 tab PO DAILY 08/31/19 08/31/19 Unknown History Active Meds: Active Medications Acetaminophen (Tylenol) 650 mg PO Q4H PRN PRN Reason: Pain MILD(1-3)/Fever >100.5/IGLESIAS Ondansetron HCl (Zofran) 4 mg IV Q6H PRN PRN Reason: Nausea And Vomiting Rivaroxaban (Xarelto) 15 mg PO DAILY@1700 [facility]; Protocol Sodium Chloride (Sodium Chloride Flush Syringe 10 Ml) 10 ml IV BID [facility] Last Admin: 08/31/19 10:14 Dose: 10 ml Documented by: Sodium Chloride (Sodium Chloride Flush Syringe 10 Ml) 10 ml IV PRN PRN PRN Reason: LINE FLUSH Review of Systems Constitutional: fatigue, weakness, malaise Exam - Vital Signs Vital signs: Vital Signs Temp Pulse Resp BP Pulse Ox 97.5 F L 60 18 134/74 99 08/30/19 17:17 08/30/19 17:17 08/30/19 17:17 08/30/19 17:17 08/30/19 17:17 - Physical Exam Narrative exam: General: No acute distress Head: Atraumatic Eyes: normal appearance ENT: Moist mucous membranes Neck: Normal appearance, no midline tenderness Chest: Clear to auscultation bilaterally CV: Regular rate and rhythm Abdomen: Soft, normal bowel sounds, nontender, nondistended, no rebound or guarding Back: Normal inspection Extremity: b/l leg edema, full range of motion Neuro: Alert O x 3, no facial asymmetry, speech clear, no gross motor sensory deficit Psych: Appropriate behavior Results - Lab Results 08/31/19 04:50 08/31/19 04:50 Most recent lab results Calcium 9.2 mg/dL (8.4-10.2) 08/31/19 04:50 Magnesium 2.20 mg/dL (1.7-2.3) 08/30/19 18:24 Assessment and Plan Impression: * Hypokalemia * Hyponatremia * Afib * HTN Plan: * replete k and mag prn * strict i/os * diuresis as needed * daily lytes * ok to dc in am k is stable
[2019-08-31] MEDS: RIVAROXABAN 15 MG TAB PO SCH ×2 (15:38→17:00)
[2019-09-01 06:05] LABS: Hematocrit 34.1 % (30.3-42.9); Hemoglobin 11.6 gm/dl (10.1-14.3); Mean Corpuscular HGB Conc 34 % (30-34); Mean Corpuscular Volume 99 fl (79-97); Platelet Count 108 K/mm3 (140-440); Red Blood Count 3.46 M/mm3 (3.65-5.03); Red Cell Distribution Width 15.6 % (13.2-15.2)
[2019-09-01 06:25] LABS: Calcium 8.7 mg/dL (8.4-10.2)
[2019-09-01] MEDS ORDERED: POTASSIUM CHLORIDE ER 20 MEQ TAB PO ONE (08:00)
[2019-09-01 09:10] VITALS: BP 118/64
--- NOTE | 2019-09-01 10:58 | Discharge Summary ---
Providers - Providers Date of Admission: 08/30/19 23:48 Date of discharge: 09/01/19 Attending physician: HUEY TY 08/30/19 23:03 Consult to Physician [CONS] Urgent Comment: Consulting Provider: ZULEYMA MATTHEWS Physician Instructions: Reason For Exam: hypokalemia, diuretic use Primary care physician: PANDA EDWARDS Hospitalization Reason for admission: Severe Hypokalemia Condition: Stable Hospital course: Final discharge diagnosis/Hospital course: Severe Hypokalemia -Likely due to chronic Lasix and metolazone use -Repleted and improved Hyponatremia -Likely pseudohyponatremia due to chronic diuretic use -Level improved Leukopenia/thrombocytopenia -Stable HTN Chronic A-fib Hx CHF with unknown EF -No acute exacerbation -Home medications on hold Patient was instructed by the computer operations specialist on how to take her diuretics at home before discharge and she verbalized understanding. Disposition: DC- TO HOME OR SELFCARE Time spent for discharge: 35 minutes Core Measure Documentation - Palliative Care Palliative Care/ Comfort Measures: Not Applicable - Core Measures Any of the following diagnoses?: none Exam - Constitutional Vitals: Temp Pulse Resp BP Pulse Ox 98.2 F 50 L 16 118/64 98 09/01/19 08:08 09/01/19 08:08 09/01/19 08:08 09/01/19 08:08 09/01/19 08:08 General appearance: Present: no acute distress, well-nourished - EENT Eyes: Present: PERRL, EOM intact ENT: hearing intact, clear oral mucosa - Neck Neck: Present: supple, normal ROM - Respiratory Respiratory effort: normal Respiratory: bilateral: CTA - Cardiovascular Rhythm: irregularly irregular Heart Sounds: Present: S1 & S2 - Extremities Extremity abnormal: edema (in BLE) - Abdominal General gastrointestinal: Present: soft, non-tender, non-distended, normal bowel sounds - Integumentary Integumentary: Present: clear, warm, dry - Musculoskeletal Musculoskeletal: gait normal, strength equal bilaterally - Psychiatric Psychiatric: cooperative - Neurologic Neurologic: moves all extremities Plan Follow up with: PANDA EDWARDS MD [Primary Care Provider] - 7 Days
--- NOTE | 2019-09-01 13:19 | Progress Note ---
Assessment and Plan Impression: * Hypokalemia * Hyponatremia * Afib * HTN Plan: * replete k and mag prn * strict i/os * diuresis as needed * daily lytes * ok to dc home, instruction on diuretics given * follow up dr murillo in one week Subjective Date of service: 09/01/19 Principal diagnosis: hypokalemia Interval history: resting in bed Objective - Exam Narrative Exam: General: No acute distress Head: Atraumatic Eyes: normal appearance ENT: Moist mucous membranes Neck: Normal appearance, no midline tenderness Chest: Clear to auscultation bilaterally CV: Regular rate and rhythm Abdomen: Soft, normal bowel sounds, nontender, nondistended, no rebound or guarding Back: Normal inspection Extremity: b/l leg edema, full range of motion Neuro: Alert O x 3, no facial asymmetry, speech clear, no gross motor sensory deficit Psych: Appropriate behavior - Vital Signs Vital signs: Vital Signs - 12hr 09/01/19 09/01/19 09/01/19 02:12 08:08 10:00 Temperature 99.2 F 98.2 F Pulse Rate 48 L 50 L 50 L Respiratory 16 16 Rate Blood Pressure 101/56 118/64 O2 Sat by Pulse 95 98 Oximetry - Lab 09/01/19 05:31 09/01/19 05:31 Most recent lab results Calcium 8.7 mg/dL (8.4-10.2) 09/01/19 05:31 Magnesium 2.20 mg/dL (1.7-2.3) 08/30/19 18:24 Medications & Allergies - Medications Allergies/Adverse Reactions: Allergies Facdsos-Fnf-Gfc Reductase Inhibitor Allergy (Verified 08/30/19 17:15) Unknown Home Medications: Home Medications Medication Instructions Recorded Confirmed Last Taken Type Metoprolol Xl [Metoprolol 25 mg PO QDAY 07/01/13 08/31/19 Unknown History SUCCINATE ER TAB] hydrALAZINE [Apresoline TAB] 50 mg PO Q12H 07/01/13 08/31/19 Unknown History Furosemide [Lasix TAB] 1 tab PO DAILY 08/31/19 08/31/19 Unknown History Potassium Chloride [K-Dur] 1 tab PO DAILY 08/31/19 08/31/19 Unknown History Rivaroxaban [Xarelto] 1 tab PO DAILY 08/31/19 08/31/19 Unknown History metOLazone [Zaroxolyn] 1 tab PO DAILY 08/31/19 08/31/19 Unknown History Active Medications: Generic Name Dose Route Start Last Admin Trade Name Freq PRN Reason Stop Dose Admin Acetaminophen 650 mg 08/30/19 23:48 Tylenol PO Q4H PRN Pain MILD(1-3)/Fever >100.5/IGLESIAS Ondansetron HCl 4 mg 08/30/19 23:48 Zofran IV Q6H PRN Nausea And Vomiting Rivaroxaban 15 mg 08/31/19 17:00 08/31/19 17:00 Xarelto PO Not Given DAILY@1700 [facility] Protocol Sodium Chloride 10 ml 08/31/19 10:00 09/01/19 10:22 Sodium Chloride Flush Syringe 10 Ml IV 10 ml BID HUNTER Administration Sodium Chloride 10 ml 08/30/19 23:48 Sodium Chloride Flush Syringe 10 Ml IV PRN PRN LINE FLUSH
== END 2019-09-01 11:40 | disposition home or self-care (01) | DRG 641 ==
LOC: ED 17:14 → 2B-ACE 23:48
PROVIDERS: ADMIT Internal Medicine; ATTEND Internal Medicine
DX: E87.6 Hypokalemia (principal); I13.0 Hypertensive heart and chronic kidney disease with heart failure and stage 1 through stage 4 chronic kidney disease, or unspecified chronic kidney disease; I48.20 Chronic atrial fibrillation, unspecified; E87.1 Hypo-osmolality and hyponatremia; I50.9 Heart failure, unspecified; N18.3 Chronic kidney disease, stage 3 (moderate); R60.0 Localized edema; Z79.01 Long term (current) use of anticoagulants; Z88.8 Allergy status to other drugs, medicaments and biological substances; Z79.899 Other long term (current) drug therapy; T50.1X5A Adverse effect of loop [high-ceiling] diuretics, initial encounter; D72.819 Decreased white blood cell count, unspecified; D69.6 Thrombocytopenia, unspecified; T50.2X5A Adverse effect of carbonic-anhydrase inhibitors, benzothiadiazides and other diuretics, initial encounter; Y92.89 Other specified places as the place of occurrence of the external cause
CPT/HCPCS: 36415; 80048; 80053; 83735; 84132; 85007; 85025; 85027; 93005; 93010; 96365; 96366; G0378; J3480; J7030

== ENCOUNTER 2019-09-13 09:08 | Observation (INO) | payer MEDICARE ==
--- NOTE | 2019-09-13 10:01 | Emergency Department Report ---
ED General Adult HPI - General Chief complaint: Recheck/Abnormal Lab/Rx Stated complaint: LOW POTASSIUM Time Seen by Provider: 09/13/19 09:35 Source: patient, family Mode of arrival: Ambulatory Limitations: No Limitations, Altered Mental Status - History of Present Illness Initial comments: This is a 78-year-old -[place] female presents to the emergency room with a low potassium. Past medical history congestive heart failure, atrial fibrillation, cardiomegaly, and chronic kidney disease stage III. Patient states she went to her carbon paste mixer operator Dr. Gunter yesterday and had labs drawn. She received a call this morning from nephrology office stating her potassium was low to come directly to the emergency room. Patient states she was discharged from this emergency room 2 weeks ago with similar symptoms. She reports taking potassium daily with the Lasix. Reports chronic bilateral lower extremity edema. She denies chest pain, palpitations, weakness, leg cramps, or shortness of breath. -: This morning Severity scale (0 -10): 0 Associated Symptoms: denies other symptoms Treatments Prior to Arrival: none - Related Data Home Medications Medication Instructions Recorded Confirmed Last Taken Furosemide [Lasix TAB] 40 mg PO BID 09/13/19 09/13/19 Unknown Metoprolol [Lopressor TAB] 25 mg PO QDAY 09/13/19 09/13/19 Unknown Potassium Chloride [Klor-Con 8] 20 meq PO BID 09/13/19 09/13/19 Unknown Rivaroxaban [Xarelto] 15 mg PO QDAY 09/13/19 09/13/19 Unknown Spironolactone [Aldactone] 25 mg PO BID 09/13/19 09/13/19 Unknown hydrALAZINE [Apresoline] 25 mg PO TID 09/13/19 09/13/19 Unknown Allergies Allergy/AdvReac Type Severity Reaction Status Date / Time Dkpowll-Iho-Xno Reductase Allergy Unknown Verified 09/13/19 09:11 Inhibitor ED Review of Systems ROS: Stated complaint: LOW POTASSIUM Other details as noted in HPI Constitutional: denies: chills, fever Respiratory: denies: cough, shortness of breath, wheezing Cardiovascular: edema. denies: chest pain, palpitations, dyspnea on exertion Gastrointestinal: denies: abdominal pain, nausea, diarrhea Musculoskeletal: denies: back pain, joint swelling, arthralgia Skin: denies: rash, lesions Neurological: denies: headache, weakness, paresthesias Psychiatric: denies: anxiety, depression ED Past Medical Hx - Past Medical History Hx Hypertension: Yes Additional medical history: enlarged heart HYPOKALEMIA - Surgical History Additional Surgical History: hernia repair, csections, hyst - Social History Smoking Status: Never Smoker Substance Use Type: None - Medications Home Medications: Home Medications Medication Instructions Recorded Confirmed Last Taken Type Furosemide [Lasix TAB] 40 mg PO BID 09/13/19 09/13/19 Unknown History Metoprolol [Lopressor TAB] 25 mg PO QDAY 09/13/19 09/13/19 Unknown History Potassium Chloride [Klor-Con 8] 20 meq PO BID 09/13/19 09/13/19 Unknown History Rivaroxaban [Xarelto] 15 mg PO QDAY 09/13/19 09/13/19 Unknown History Spironolactone [Aldactone] 25 mg PO BID 09/13/19 09/13/19 Unknown History hydrALAZINE [Apresoline] 25 mg PO TID 09/13/19 09/13/19 Unknown History ED Physical Exam - General Limitations: No Limitations General appearance: alert, in no apparent distress - Respiratory Respiratory exam: Present: normal lung sounds bilaterally. Absent: respiratory distress - Cardiovascular Cardiovascular Exam: Present: regular rate, normal rhythm. Absent: systolic murmur, diastolic murmur, rubs, gallop - GI/Abdominal GI/Abdominal exam: Present: soft, normal bowel sounds. Absent: distended, tenderness, guarding, rebound, rigid - Extremities Exam Extremities exam: Present: full ROM, normal capillary refill, pedal edema (+2 pitting). Absent: joint swelling, calf tenderness - Neurological Exam Neurological exam: Present: alert, oriented X3 - Psychiatric Psychiatric exam: Present: normal affect, normal mood - Skin Skin exam: Present: warm, dry, intact, normal color. Absent: rash ED Course Vital Signs 09/13/19 09/13/19 09/13/19 09:12 09:46 10:00 Temperature 97.6 F Pulse Rate 60 64 58 L Respiratory 16 14 14 Rate Blood Pressure 128/72 133/76 126/64 O2 Sat by Pulse 100 100 99 Oximetry 09/13/19 09/13/19 09/13/19 10:15 10:31 10:45 Temperature Pulse Rate 55 L Respiratory 13 Rate Blood Pressure 116/58 116/58 111/53 O2 Sat by Pulse 98 100 97 Oximetry 09/13/19 09/13/19 09/13/19 11:00 11:15 11:31 Temperature Pulse Rate 51 L 61 52 L Respiratory 14 12 13 Rate Blood Pressure 108/56 108/56 107/48 O2 Sat by Pulse 98 100 100 Oximetry - Reevaluation(s) Reevaluation #1: 09/13/19 11:02 Receive notification critical potassium level 2.3. Given potassium 20 mL to IV. Reevaluation #2: 09/13/19 11:44 A[address] Room [address] hospitalist Dr. Shay who agreed to admit patient to [facility] for hypokalemia. ED Medical Decision Making - Lab Data Result diagrams: 09/13/19 09:48 09/13/19 09:48 Lab Results 09/13/19 09/13/19 Range/Units 09:48 09:48 WBC 3.3 L (4.5-11.0) K/mm3 RBC 3.84 (3.65-5.03) M/mm3 Hgb 13.0 (10.1-14.3) gm/dl Hct 37.8 (30.3-42.9) % MCV 98 H (79-97) fl MCH 34 H (28-32) pg MCHC 34 (30-34) % RDW 15.7 H (13.2-15.2) % Plt Count 125 L (140-440) K/mm3 Sodium 135 L (137-145) mmol/L Potassium 2.3 L* (3.6-5.0) mmol/L Chloride 85.0 L (98-107) mmol/L Carbon Dioxide 30 (22-30) mmol/L Anion Gap 22 mmol/L BUN 22 H (7-17) mg/dL Creatinine 1.0 (0.7-1.2) mg/dL Estimated GFR > 60 ml/min BUN/Creatinine Ratio 22 % Glucose 86 (65-100) mg/dL Calcium 9.4 (8.4-10.2) mg/dL Total Bilirubin 4.10 H (0.1-1.2) mg/dL AST 51 H (5-40) units/L ALT 15 (7-56) units/L Alkaline Phosphatase 81 (35-129) units/L NT-Pro-B Natriuret Pep 5285 H (0-900) pg/mL Total Protein 8.0 (6.3-8.2) g/dL Albumin 4.0 (3.9-5) g/dL Albumin/Globulin Ratio 1.0 % - EKG Data -: No EKG Interpreted by Me (EKG interpreted by attending, atrial fibrillation) - Medical Decision Making Patient was examined by me. Patient is nontoxic appearing and stable. Vitals are normal. Past medical history of cardiomegaly, congestive heart failure, atrial fibrillation, and chronic kidney disease stage III. Labs obtained. Severe hypokalemia. Consulted attending. Given IV potassium 20 mL every. Consulted hospitalist Dr. Mcguire who agreed to admit patient to [facility] for Hypokalemia. Dr. Mcguire instructed to give potassium 40 mEq once. Patient currently receiving potassium 20 mEq IV. Additional order of potassium [address] for admission. - Differential Diagnosis metabolic acidosis Critical care attestation.: If time is entered above; I have spent that time in minutes in the direct care of this critically ill patient, excluding procedure time. ED Disposition Clinical Impression: Chronic atrial fibrillation, Diuretic-induced hypokalemia Disposition: OP ADMIT IP TO THIS HOSP Is pt being admited?: Yes Condition: Stable
[2019-09-13 10:03] LABS: Hematocrit 37.8 % (30.3-42.9); Mean Corpuscular HGB Conc 34 % (30-34); Mean Corpuscular Volume 98 fl (79-97); Platelet Count 125 K/mm3 (140-440); Red Blood Count 3.84 M/mm3 (3.65-5.03); Red Cell Distribution Width 15.7 % (13.2-15.2)
[2019-09-13 10:40] LABS: Alanine Aminotransferase 15 units/L (7-56); BUN/Creatinine Ratio 22; Blood Urea Nitrogen 22 mg/dL (7-17); Calcium 9.4 mg/dL (8.4-10.2); Hemolysis Index 0
--- NOTE | 2019-09-13 10:43 | XRay Report ---
CHEST 2 VIEWS INDICATION: swelling. COMPARISON: None. FINDINGS: Support devices: None. Heart: Prominent cardiomegaly. Lungs/Pleura: Mild vascular congestion and underlying COPD. Mild atelectasis versus scarring left mid zone. No significant pleural effusion. IMPRESSION: 1. Cardiomegaly with mild vascular congestion. 2. Underlying COPD. 3. Atelectasis versus scarring left mid zone. Signer Name: Joe Schuster MD Signed: 09/13/2019 10:39 AM Workstation Name: [id number]
[2019-09-13] MEDS: POTASSIUM CHLORIDE 10 MEQ 10 MEQ/100 ML BAG IV SCH ×4 (11:09→20:54)
[2019-09-13] MEDS ORDERED: POTASSIUM CHLORIDE ER 20 MEQ TAB PO ONE (14:30)
--- NOTE | 2019-09-13 14:40 | History and Physical Report ---
History of Present Illness Date of examination: 09/13/19 Date of admission: 09/13/19 11:47 Chief complaint: Abnormal Labs (hypokalemia) History of present illness: Patient is a 78-year-old female, with a past medical history of stroke, CHF, hypertension, CKD and A. fib who was sent to ED by her Clinical Transplant Coordinator (Dr. Gunter). Pt is a recent discharge 09/01/2019 for similar complaints. Pt had follow-up appointment yesterday, had labs drawn and resulted this morning. Patient was instructed to come to the ER after it was found that her potassium was 2.7. Pt is currently asymptomatic. She denies SOB, chest pain, palpitations, or muscle aches, cramps. Patient does complain of bilateral leg edema which she has had 2 years, she was seen by vascular surgeon (Dr. Cabrera) on Monday and was diagnosed with venous insufficiency, has upcoming surgery scheduled. Past History Past Medical History: atrial fib (10/2018), hypertension, liver disease (CHF, CKD Stage 3, Venous Insufficiency), stroke (10/2017) Past Surgical History: (cyst removal), hernia repair Social history: Lives alone Family history: cancer (prostate), hypertension Medications and Allergies Allergies Allergy/AdvReac Type Severity Reaction Status Date / Time Pknapvx-Iio-Dfz Reductase Allergy Unknown Verified 09/13/19 09:11 Inhibitor Home Medications Medication Instructions Recorded Confirmed Last Taken Type Furosemide [Lasix TAB] 40 mg PO BID 09/13/19 09/13/19 Unknown History Metoprolol [Lopressor TAB] 25 mg PO QDAY 09/13/19 09/13/19 Unknown History Potassium Chloride [Klor-Con 8] 20 meq PO BID 09/13/19 09/13/19 Unknown History Rivaroxaban [Xarelto] 15 mg PO QDAY 09/13/19 09/13/19 Unknown History Spironolactone [Aldactone] 25 mg PO BID 09/13/19 09/13/19 Unknown History hydrALAZINE [Apresoline] 25 mg PO TID 09/13/19 09/13/19 Unknown History Active Meds: Active Medications Potassium Chloride (Kcl 10meq/100ml) 10 meq in 100 mls @ 100 mls/hr IV Q1H HUNTER Stop: 12/06/19 15:59 Review of Systems Constitutional: no fever, no chills, no chronic pain Ears, nose, mouth and throat: no sinus pressure, no hoarseness, no sore throat, no headache, no vertigo Breasts: no swelling, no pain Cardiovascular: phlebitis, high blood pressure, no chest pain, no orthopnea, no lightheadedness Respiratory: no congestion, no wheezing, no pain on inspiration, no sleep apnea, no respiratory infections Gastrointestinal: no abdominal pain, no nausea, no vomiting Genitourinary Female: no pelvic pain, no flank pain, no difficulty voiding Menstruation: postmenopausal Rectal: no incontinence, no bleeding Musculoskeletal: no neck stiffness, no arm numbness/tingling, no low back pain, no leg numbness/tingling Integumentary: darkening of skin, no rash, no wounds, no jaundice Neurological: no head injury, no numbness, no tingling, no seizures, no change in speech, no change in mentation, no burning pain Psychiatric: no anxiety, no change in appetite, no suicidal ideation, no disorientation Endocrine: weight change Allergic/Immunologic: no wheezing, no persistent infections Exam - Constitutional Vitals: Temp Pulse Resp BP Pulse Ox 97.6 F 52 L 13 107/48 100 09/13/19 09:12 09/13/19 11:31 09/13/19 11:31 09/13/19 11:31 09/13/19 11:31 General appearance: Present: no acute distress - EENT Eyes: Present: PERRL ENT: hearing intact, clear oral mucosa - Neck Neck: Present: supple, normal ROM - Respiratory Respiratory effort: normal Respiratory: bilateral: CTA, diminished - Cardiovascular Rhythm: irregularly irregular Heart Sounds: Present: S1 & S2. Absent: rub, click - Extremities Extremities: pulses symmetrical, No edema Extremity abnormal: edema Peripheral Pulses: within normal limits - Abdominal General gastrointestinal: Present: soft, non-tender, non-distended, normal bowel sounds Female genitourinary: Present: normal - Integumentary Integumentary: Present: clear, warm, dry - Musculoskeletal Musculoskeletal: gait normal, strength equal bilaterally - Psychiatric Psychiatric: appropriate mood/affect, intact judgment & insight - Neurologic Neurologic: CNII-XII intact, moves all extremities Results - Labs CBC & Chem 7: 09/13/19 09:48 09/13/19 09:48 Labs: Laboratory Last Values WBC 3.3 K/mm3 (4.5-11.0) L 09/13/19 09:48 RBC 3.84 M/mm3 (3.65-5.03) 09/13/19 09:48 Hgb 13.0 gm/dl (10.1-14.3) 09/13/19 09:48 Hct 37.8 % (30.3-42.9) 09/13/19 09:48 MCV 98 fl (79-97) H 09/13/19 09:48 MCH 34 pg (28-32) H 09/13/19 09:48 MCHC 34 % (30-34) 09/13/19 09:48 RDW 15.7 % (13.2-15.2) H 09/13/19 09:48 Plt Count 125 K/mm3 (140-440) L 09/13/19 09:48 Sodium 135 mmol/L (137-145) L 09/13/19 09:48 Potassium 2.3 mmol/L (3.6-5.0) L* 09/13/19 09:48 Chloride 85.0 mmol/L (98-107) L 09/13/19 09:48 Carbon Dioxide 30 mmol/L (22-30) 09/13/19 09:48 Anion Gap 22 mmol/L 09/13/19 09:48 BUN 22 mg/dL (7-17) H 09/13/19 09:48 Creatinine 1.0 mg/dL (0.7-1.2) 09/13/19 09:48 Estimated GFR > 60 ml/min 09/13/19 09:48 BUN/Creatinine Ratio 22 % 09/13/19 09:48 Glucose 86 mg/dL (65-100) 09/13/19 09:48 Calcium 9.4 mg/dL (8.4-10.2) 09/13/19 09:48 Total Bilirubin 4.10 mg/dL (0.1-1.2) H 09/13/19 09:48 AST 51 units/L (5-40) H 09/13/19 09:48 ALT 15 units/L (7-56) 09/13/19 09:48 Alkaline Phosphatase 81 units/L (35-129) 09/13/19 09:48 NT-Pro-B Natriuret Pep 5285 pg/mL (0-900) H 09/13/19 09:48 Total Protein 8.0 g/dL (6.3-8.2) 09/13/19 09:48 Albumin 4.0 g/dL (3.9-5) 09/13/19 09:48 Albumin/Globulin Ratio 1.0 % 09/13/19 09:48 - Imaging and Cardiology EKG: report reviewed (Atrial fibrillation, old inferior infarct, old anterior infarct) Chest x-ray: report reviewed (Cardiomegaly with mild vascular congestion, underlying COPD, atelectasis versus scarring left mid zone) Assessment and Plan Assessment and plan: Hypokalemia -Potassium on admission 2.7 - IV potassium 20 mEq -Likely due to chronic Lasix and metolazone use -Patient saw Dr. Gunter yesterday, his plan is to DC metolazone and change to spirinolactone -Continue to monitor, replete prn -Continuous telemetry monitoring CHF -Trend labs -ECHO ordered -Cards consult A-fib -Anticoagulated on Xarelto HTN -Monitor BP -Resume home hypertensive meds Hyponatremia -Likely pseudohyponatremia due to chronic diuretic use -mild Na 135 -Monitor I's and O's -Continue to monitor electrolyte and repleate prn Venous insufficiency -Pressured stockings Thrombocytopenia -Continue to monitor labs DVT PPX -on Xarelto -SCD's VTE prophylaxis?: Mechanical Plan of care discussed with patient/family: Yes
[2019-09-13] MEDS ORDERED: ONDANSETRON 4 MG/2 ML INJ IV PRN (15:55)
[2019-09-13] MEDS ORDERED: ACETAMINOPHEN 325 MG TAB PO PRN (15:55)
[2019-09-13] MEDS ORDERED: D5W/0.9% NACL 1,000 ML IV SCH (16:00)
[2019-09-13] MEDS ORDERED: SODIUM CHLORIDE 0.9% 1000 ML 1,000 ML IV SCH (16:15)
[2019-09-13] MEDS ORDERED: POTASSIUM CHLORIDE ER 20 MEQ TAB PO SCH (18:38)
[2019-09-13] MEDS: hydrALAZINE 25 MG TAB PO SCH (20:32)
[2019-09-13] MEDS: SPIRONOLACTONE 25 MG TAB PO SCH (21:05)
[2019-09-13] MEDS: FUROSEMIDE 40 MG TAB PO SCH (21:06)
[2019-09-13] MEDS: POTASSIUM CHLORIDE ER 8 MEQ TAB PO SCH (23:36)
[2019-09-14 05:25] LABS: Hematocrit 34.3 % (30.3-42.9); Hemoglobin 11.8 gm/dl (10.1-14.3); Mean Corpuscular HGB Conc 35 % (30-34); Mean Corpuscular Volume 98 fl (79-97); Platelet Count 104 K/mm3 (140-440); Red Blood Count 3.49 M/mm3 (3.65-5.03); Red Cell Distribution Width 15.9 % (13.2-15.2)
[2019-09-14 05:44] LABS: BUN/Creatinine Ratio 22; Blood Urea Nitrogen 20 mg/dL (7-17); Calcium 8.9 mg/dL (8.4-10.2); Hemolysis Index 1
[2019-09-14] MEDS: hydrALAZINE 25 MG TAB PO SCH (07:39)
[2019-09-14] MEDS: FUROSEMIDE 40 MG TAB PO SCH (09:59)
[2019-09-14] MEDS ORDERED: METOPROLOL TARTRATE 25 MG TAB PO SCH (10:00)
[2019-09-14] MEDS: RIVAROXABAN 15 MG TAB PO SCH (10:01)
[2019-09-14] MEDS: SPIRONOLACTONE 25 MG TAB PO SCH (10:02)
[2019-09-14] MEDS: POTASSIUM CHLORIDE ER 8 MEQ TAB PO SCH ×2 (10:02→22:50)
[2019-09-14 10:16] LABS: Basophils % (Manual) 0 % (0.0-1.8); Total Cells Counted 100
[2019-09-14 10:18] LABS: Platelet Estimate Consistent w Auto; Target Cells Few
--- NOTE | 2019-09-14 10:44 | Consultation ---
History of Present Illness Consult date: 09/14/19 Requesting physician: ERICA HOPE Consult reason: congestive heart failure History of present illness: Ms. 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 She was asymptomatic on arrival and has no cardiac complaints on examination this morning. She follows with Dr. Novoa in our office. Echo from 09/14/2019 reviewed: EF 50 percent, dilated hypokinetic RV, dilated LA & RA, moderate LV thickening, pleural effusion, mild to moderate MR, severe TR, suspicion for amyloidosis. A stress test in 2009 found a mild reversible mid- to basal inferoseptal defect of unclear significance, but no angiographic evidence of ischemia. Past History Past Medical History: atrial fib (10/2018), hypertension, liver disease, stroke (10/2017), other (Venous insufficiency, CKD) Past Surgical History: (cyst removal), hernia repair Social history: Lives alone Family history: cancer (prostate), hypertension Medications and Allergies Allergies Allergy/AdvReac Type Severity Reaction Status Date / Time Aluwfrr-Iza-Xbq Reductase Allergy Unknown Verified 09/13/19 09:11 Inhibitor Home Medications Medication Instructions Recorded Confirmed Last Taken Type Furosemide [Lasix TAB] 40 mg PO BID 09/13/19 09/13/19 Unknown History Metoprolol [Lopressor TAB] 25 mg PO QDAY 09/13/19 09/13/19 Unknown History Potassium Chloride [Klor-Con 8] 20 meq PO BID 09/13/19 09/13/19 Unknown History Rivaroxaban [Xarelto] 15 mg PO QDAY 09/13/19 09/13/19 Unknown History Spironolactone [Aldactone] 25 mg PO BID 09/13/19 09/13/19 Unknown History hydrALAZINE [Apresoline] 25 mg PO TID 09/13/19 09/13/19 Unknown History Active Meds: Active Medications Acetaminophen (Tylenol) 650 mg PO Q4H PRN PRN Reason: Pain MILD(1-3)/Fever >100.5/IGLESIAS Furosemide (Lasix) 40 mg PO BID HUNTER Last Admin: 09/14/19 09:59 Dose: 40 mg Documented by: Hydralazine HCl (Apresoline) 25 mg PO TID [facility] Last Admin: 09/14/19 07:39 Dose: Not Given Documented by: Potassium Chloride (Kcl 10meq/100ml) 10 meq in 100 mls @ 100 mls/hr IV Q1H [facility] Stop: 09/14/19 10:59 Ondansetron HCl (Zofran) 4 mg IV Q8H PRN PRN Reason: Nausea And Vomiting Potassium Chloride (Klor-Con 8) 20 meq PO BID [facility] Last Admin: 09/14/19 10:02 Dose: 20 meq Documented by: Rivaroxaban (Xarelto) 15 mg PO QDAY [facility]; Protocol Last Admin: 09/14/19 10:01 Dose: 15 mg Documented by: Sodium Chloride (Sodium Chloride Flush Syringe 10 Ml) 10 ml IV BID [facility] Last Admin: 09/14/19 10:01 Dose: 10 ml Documented by: Sodium Chloride (Sodium Chloride Flush Syringe 10 Ml) 10 ml IV PRN PRN PRN Reason: LINE FLUSH Spironolactone (Aldactone) 25 mg PO BID [facility] Last Admin: 09/14/19 10:02 Dose: 25 mg Documented by: Review of Systems All systems: negative Physical Examination Last Vital Signs Temp 98.4 F 09/14/19 07:04 Pulse 57 L 09/14/19 10:02 Resp 18 09/14/19 07:04 BP 119/49 09/14/19 10:02 Pulse Ox 94 09/14/19 07:04 General appearance: no acute distress HEENT: Positive: PERRL Neck: Positive: neck supple Cardiac: Positive: Reg Rate and Rhythm Lungs: Positive: Normal Exam Neuro: Positive: Grossly Intact Abdomen: Positive: Unremarkable Female genitourinary: deferred Skin: Positive: Clear Musculoskeletal: Normal Range of Motion Extremities: Present: normal Results 09/14/19 04:22 09/14/19 04:22 CBC 09/14/19 Range/Units 04:22 WBC 2.4 L (4.5-11.0) K/mm3 RBC 3.49 L (3.65-5.03) M/mm3 Hgb 11.8 (10.1-14.3) gm/dl Hct 34.3 (30.3-42.9) % Plt Count 104 L (140-440) K/mm3 Comprehensive Metabolic Panel 09/13/19 09/14/19 09/14/19 Range/Units 09:48 00:45 04:22 Sodium 134 L (137-145) mmol/L Potassium 2.3 L* 3.5 L D 3.3 L (3.6-5.0) mmol/L Chloride 88.4 L (98-107) mmol/L Carbon Dioxide 27 (22-30) mmol/L BUN 20 H (7-17) mg/dL Creatinine 0.9 (0.7-1.2) mg/dL Glucose 102 H (65-100) mg/dL Calcium 8.9 (8.4-10.2) mg/dL - Imaging and Cardiology Echo: report reviewed (09/14/19: Echo from 09/14/2019 reviewed: EF 50 percent, dilated hypokinetic RV, dilated LA & RA, moderate LV thickening, pleural effusion, mild to moderate MR, severe TR, suspicion for amyloidosis. ) - EKG Interpretation EKG: sinus rhythm EKG interpretations - Telemetry EKG Rhythm: Sinus Rhythm Assessment and Plan Ms. Gomez is a 78 y/o female admitted with hypokalemia. She currently has no cardiac complaints. Bradycardia noted - will discontinue metoprolol. E chocardiogram concerning for cardiac amyloidosis - will ultimately refer to [facility] for further evaluation. Monitor and replete electrolytes PRN and continue other cardiac management. The patient has been seen in conjunction with Dr. Mccormick, who agrees with the assessment and plan. - Patient Problems (1) Diuretic-induced hypokalemia Current Visit: Yes Status: Acute (2) Chronic heart failure with preserved ejection fraction (HFpEF) Current Visit: Yes Status: Chronic (3) Atrial fibrillation Current Visit: Yes Status: Chronic (4) Chronic edema Current Visit: Yes Status: Chronic (5) History of CVA (cerebrovascular accident) Current Visit: Yes Status: Chronic (6) CKD (chronic kidney disease) Current Visit: Yes Status: Chronic (7) Hypertension Current Visit: Yes Status: Chronic
[2019-09-14] MEDS: POTASSIUM CHLORIDE 10 MEQ 10 MEQ/100 ML BAG IV SCH ×2 (11:26→12:47)
--- NOTE | 2019-09-14 12:20 | Progress Note ---
Assessment and Plan Assessment and plan: Hypokalemia -diuretics induced -improving on repletion, will monitor level -will check mg level Chronic diastolic HF with EF of 50% -no acute exacerbation -will hold her home diuretics for now due to the hypokalemia -ECHO showed EF of 50% and findings suspicious for cardiac amyloidosis -Cards consulted: will refer pt to [place] for the cardiac amyloidosis A-fib -now bradycardic, metoprolol d/ame -cont oral anticoagulation with Xarelto HTN -BP trended down -home anti-hypertensives held -monitor BP Hyponatremia -Likely due to chronic diuretic use -will monitor level Chronic leukopenia and thrombocytopenia -stable DVT ppx: pt is on xarelto Disp: for possible d/c in am if K level remains stable History Interval history: Pt has no new complaints. She denied sob or chest pain Hospitalist Physical - Constitutional Vitals: Temp Pulse Resp BP Pulse Ox 98.4 F 57 L 20 119/49 94 09/14/19 07:04 09/14/19 10:02 09/14/19 10:00 09/14/19 10:02 09/14/19 10:00 General appearance: Present: no acute distress - EENT Eyes: Present: PERRL, EOM intact ENT: clear oral mucosa - Neck Neck: Present: supple - Respiratory Respiratory effort: normal Respiratory: bilateral: CTA, diminished - Cardiovascular Rhythm: regular (with bradycardia) Heart Sounds: Present: S1 & S2 - Extremities Extremity abnormal: edema (chronic in BLE) - Abdominal General gastrointestinal: soft, non-tender, normal bowel sounds - Integumentary Integumentary: Present: warm, dry - Psychiatric Psychiatric: cooperative - Neurologic Neurologic: moves all extremities Results - Labs CBC & Chem 7: 09/14/19 04:22 09/14/19 04:22 Labs: Laboratory Last Values WBC 2.4 K/mm3 (4.5-11.0) L 09/14/19 04:22 RBC 3.49 M/mm3 (3.65-5.03) L 09/14/19 04:22 Hgb 11.8 gm/dl (10.1-14.3) 09/14/19 04:22 Hct 34.3 % (30.3-42.9) 09/14/19 04:22 MCV 98 fl (79-97) H 09/14/19 04:22 MCH 34 pg (28-32) H 09/14/19 04:22 MCHC 35 % (30-34) H 09/14/19 04:22 RDW 15.9 % (13.2-15.2) H 09/14/19 04:22 Plt Count 104 K/mm3 (140-440) L 09/14/19 04:22 Roberts % (Auto) Group Social Worker 09/14/19 04:22 Add Manual Diff Complete 09/14/19 04:22 Total Counted 100 09/14/19 04:22 Seg Neuts % (Manual) 56.0 % (40.0-70.0) 09/14/19 04:22 Band Neutrophils % 0 % 09/14/19 04:22 Lymphocytes % (Manual) 23.0 % (13.4-35.0) 09/14/19 04:22 Reactive Lymphs % (Man) 5.0 % 09/14/19 04:22 Monocytes % (Manual) 14.0 % (0.0-7.3) H 09/14/19 04:22 Eosinophils % (Manual) 2.0 % (0.0-4.3) 09/14/19 04:22 Basophils % (Manual) 0 % (0.0-1.8) 09/14/19 04:22 Metamyelocytes % 0 % 09/14/19 04:22 Myelocytes % 0 % 09/14/19 04:22 Promyelocytes % 0 % 09/14/19 04:22 Blast Cells % 0 % 09/14/19 04:22 Nucleated RBC % 1.0 % (0.0-0.9) H 09/14/19 04:22 Seg Neutrophils # Man 1.3 K/mm3 (1.8-7.7) L 09/14/19 04:22 Band Neutrophils # 0.0 K/mm3 09/14/19 04:22 Lymphocytes # (Manual) 0.6 K/mm3 (1.2-5.4) L 09/14/19 04:22 Abs React Lymphs (Man) 0.1 K/mm3 09/14/19 04:22 Monocytes # (Manual) 0.3 K/mm3 (0.0-0.8) 09/14/19 04:22 Eosinophils # (Manual) 0.0 K/mm3 (0.0-0.4) 09/14/19 04:22 Basophils # (Manual) 0.0 K/mm3 (0.0-0.1) 09/14/19 04:22 Metamyelocytes # 0.0 K/mm3 09/14/19 04:22 Myelocytes # 0.0 K/mm3 09/14/19 04:22 Promyelocytes # 0.0 K/mm3 09/14/19 04:22 Blast Cells # 0.0 K/mm3 09/14/19 04:22 WBC Morphology Not Reportable 09/14/19 04:22 Hypersegmented Neuts Not Reportable 09/14/19 04:22 Hyposegmented Neuts Not Reportable 09/14/19 04:22 Hypogranular Neuts Not Reportable 09/14/19 04:22 Smudge Cells Not Reportable 09/14/19 04:22 Toxic Granulation Not Reportable 09/14/19 04:22 Toxic Vacuolation Not Reportable 09/14/19 04:22 Dohle Bodies Not Reportable 09/14/19 04:22 Pelger-Huet Anomaly Not Reportable 09/14/19 04:22 Sameer Rods Not Reportable 09/14/19 04:22 Platelet Estimate Consistent w auto 09/14/19 04:22 Clumped Platelets Not Reportable 09/14/19 04:22 Plt Clumps, EDTA Not Reportable 09/14/19 04:22 Large Platelets Not Reportable 09/14/19 04:22 Giant Platelets Not Reportable 09/14/19 04:22 Platelet Satelliting Not Reportable 09/14/19 04:22 Plt Morphology Comment Not Reportable 09/14/19 04:22 RBC Morphology Not Reportable 09/14/19 04:22 Dimorphic RBCs Not Reportable 09/14/19 04:22 Polychromasia Not Reportable 09/14/19 04:22 Hypochromasia Not Reportable 09/14/19 04:22 Poikilocytosis Not Reportable 09/14/19 04:22 Anisocytosis Not Reportable 09/14/19 04:22 Microcytosis Not Reportable 09/14/19 04:22 Macrocytosis Not Reportable 09/14/19 04:22 Spherocytes Not Reportable 09/14/19 04:22 Pappenheimer Bodies Not Reportable 09/14/19 04:22 Sickle Cells Not Reportable 09/14/19 04:22 Target Cells Few 09/14/19 04:22 Tear Drop Cells Not Reportable 09/14/19 04:22 Ovalocytes Not Reportable 09/14/19 04:22 Helmet Cells Not Reportable 09/14/19 04:22 Leonardo-Culbertson Bodies Not Reportable 09/14/19 04:22 [place] Rings Not Reportable 09/14/19 04:22 Vania Cells Not Reportable 09/14/19 04:22 Bite Cells Not Reportable 09/14/19 04:22 Crenated Cell Not Reportable 09/14/19 04:22 Elliptocytes Not Reportable 09/14/19 04:22 Acanthocytes (Spur) Few 09/14/19 04:22 Rouleaux Not Reportable 09/14/19 04:22 Hemoglobin C Crystals Not Reportable 09/14/19 04:22 Schistocytes Not Reportable 09/14/19 04:22 Malaria parasites Not Reportable 09/14/19 04:22 Yahir Bodies Not Reportable 09/14/19 04:22 Hem Pathologist Commnt No 09/14/19 04:22 Sodium 134 mmol/L (137-145) L 09/14/19 04:22 Potassium 3.3 mmol/L (3.6-5.0) L 09/14/19 04:22 Chloride 88.4 mmol/L (98-107) L 09/14/19 04:22 Carbon Dioxide 27 mmol/L (22-30) 09/14/19 04:22 Anion Gap 22 mmol/L 09/14/19 04:22 BUN 20 mg/dL (7-17) H 09/14/19 04:22 Creatinine 0.9 mg/dL (0.7-1.2) 09/14/19 04:22 Estimated GFR > 60 ml/min 09/14/19 04:22 BUN/Creatinine Ratio 22 % 09/14/19 04:22 Glucose 102 mg/dL (65-100) H 09/14/19 04:22 Calcium 8.9 mg/dL (8.4-10.2) 09/14/19 04:22 Total Bilirubin 4.10 mg/dL (0.1-1.2) H 09/13/19 09:48 AST 51 units/L (5-40) H 09/13/19 09:48 ALT 15 units/L (7-56) 09/13/19 09:48 Alkaline Phosphatase 81 units/L (35-129) 09/13/19 09:48 NT-Pro-B Natriuret Pep 5285 pg/mL (0-900) H 09/13/19 09:48 Total Protein 8.0 g/dL (6.3-8.2) 09/13/19 09:48 Albumin 4.0 g/dL (3.9-5) 09/13/19 09:48 Albumin/Globulin Ratio 1.0 % 09/13/19 09:48 Active Medications - Current Medications Current Medications: Generic Name Dose Route Start Last Admin Trade Name Freq PRN Reason Stop Dose Admin Acetaminophen 650 mg 09/13/19 15:55 Tylenol PO Q4H PRN Pain MILD(1-3)/Fever >100.5/IGLESIAS Furosemide 40 mg 09/13/19 22:00 09/14/19 09:59 Lasix PO 40 mg BID HUNTER Administration Hydralazine HCl 25 mg 09/13/19 20:00 09/14/19 07:39 Apresoline PO Not Given TID HUNTER Ondansetron HCl 4 mg 09/13/19 15:55 Zofran IV Q8H PRN Nausea And Vomiting Potassium Chloride 20 meq 09/13/19 22:00 09/14/19 10:02 Klor-Con 8 PO 20 meq BID HUNTER Administration Rivaroxaban 15 mg 09/14/19 10:00 09/14/19 10:01 Xarelto PO 15 mg QDAY HUNTER Administration Protocol Sodium Chloride 10 ml 09/13/19 22:00 09/14/19 10:01 Sodium Chloride Flush Syringe 10 Ml IV 10 ml BID HUNTER Administration Sodium Chloride 10 ml 09/13/19 15:55 Sodium Chloride Flush Syringe 10 Ml IV PRN PRN LINE FLUSH Spironolactone 25 mg 09/13/19 22:00 09/14/19 10:02 Aldactone PO 25 mg BID HUNTER Administration Nutrition/Malnutrition Assess - Dietary Evaluation Nutrition/Malnutrition Findings: Nutrition Notes Start: 09/14/19 10:05 Freq: Status: Active Protocol: Document 09/14/19 10:05 LP (Rec: 09/14/19 10:13 LP [id number]) Nutrition Notes Need for Assessment generated from: church worker,MST Initial or Follow up Assessment Current Diagnosis CKD(stage I-IV),Hypertension, Heart Failure Current Diet Cardiac Labs/Tests Na 134 K 3.3 BUN 20 Bili 4.1 Pertinent Medications Erich yates 8 Height 4 ft 10 in Weight 54.431 kg Lawson Body Weight (kg) 40.90 BMI 25.0 Intake Prior to Admission Excellent Weight Status Appropriate Subjective/Other Information Screen for MST. Pt states wt fluctuates due to fluid accumulation. 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 Noted slight temporal wasting. Consumed 90% of breakfast this AM. Burn Absent Trauma Absent Current % PO Good (75-100%) Minimum of two criteria Yes Muscle Mass Mild Depletion (non-severe) Fluid Accumulation Moderate to Severe (severe) #1 Nutrition Diagnosis Malnutrition Etiology advanced age, CHF As Evidenced by Signs and Symptoms Pt noted with muscle depletion and fluid accumulation Is patient on ventilator? No Is Patient Ambulatory and/or Out of Bed No REE-([facility]-confined to bed) [phone] Calculation Used for Recommendations [facility] Additional Notes Protein needs are 65-82g (1.2- 1.5g/kg) Fluid needs are 1ml/kcal Nutrition Intervention Change Diet Order: Continue cardiac Goal #1 Meet at least 80% of kcal and protein needs Anticipated Discharge Needs: Cardiac diet Follow-Up By: 09/17/19 Additional Comments Follow for intakes
[2019-09-15 06:31] LABS: BUN/Creatinine Ratio 17; Blood Urea Nitrogen 17 mg/dL (7-17); Calcium 8.7 mg/dL (8.4-10.2); Hemolysis Index 0
--- NOTE | 2019-09-15 07:24 | Discharge Summary ---
Providers - Providers Date of Admission: 09/13/19 11:47 Attending physician: TAMRA LEON MD 09/13/19 16:06 Consult to Cardiology [CONS] Routine Consulting Provider: AMARILIS GARCIA Reason For Exam: chf Primary care physician: NEEMA CABEZAS MD Hospitalization Condition: Stable Hospital course: 78-year-old woman who presents to the hospital after she was sent in by her bag grader for low potassium. She was found to have low potassium which was due to diuretic use. Diuretics were held and potassium was repleted She was also found to be hyponatremic which improved with holding diuretics Her beta-roland was held due to bradycardia -There was concern for possible cardiac amyloidosis based on review of echo, patient is referred to [facility] for follow-up Diagnosis Hypokalemia Chronic systolic and diastolic CHF, EF 50% Atrial fibrillation with hypercoagulable state Hypertension Hyponatremia Chronic leukopenia and thrombocytopenia Disposition: DC-01 TO HOME OR SELFCARE Time spent for discharge: 33 mins Core Measure Documentation - Palliative Care Palliative Care/ Comfort Measures: Not Applicable - Core Measures Any of the following diagnoses?: heart failure - Heart Failure Discharge Requirements Beta roland at discharge: No Reason for no beta roland on DC: Bradycardia Exam - Constitutional Vitals: Temp Pulse Resp BP Pulse Ox 98.6 F 47 L 20 106/58 95 09/15/19 01:48 09/15/19 01:48 09/15/19 01:48 09/15/19 01:48 09/15/19 01:48 General appearance: Present: no acute distress, well-nourished - EENT Eyes: Present: PERRL ENT: hearing intact, clear oral mucosa - Neck Neck: Present: supple, normal ROM - Respiratory Respiratory effort: normal Respiratory: bilateral: CTA - Cardiovascular Heart Sounds: Present: S1 & S2. Absent: rub, click - Extremities Extremities: pulses symmetrical, No edema Peripheral Pulses: within normal limits - Abdominal General gastrointestinal: Present: soft, non-tender, non-distended, normal bowel sounds Female genitourinary: Present: normal - Integumentary Integumentary: Present: clear, warm, dry - Musculoskeletal Musculoskeletal: gait normal, strength equal bilaterally - Psychiatric Psychiatric: appropriate mood/affect, intact judgment & insight - Neurologic Neurologic: CNII-XII intact, moves all extremities Plan Follow up with: PRIMARY CAREMD [Primary Care Provider] - 3-5 Days SIS BROWNING MD [Staff Physician] - 7 Days
[2019-09-15] MEDS: RIVAROXABAN 15 MG TAB PO SCH (09:48)
[2019-09-15] MEDS: POTASSIUM CHLORIDE ER 8 MEQ TAB PO SCH (09:48)
--- NOTE | 2019-09-15 12:00 | Progress Note ---
Assessment and Plan Cardiac status is stable. Avoid beta blockers d/t bradycardia. She may be discharged home from our perspective. Follow up with Dr. Novoa in our office in 7-10 days to discuss evaluation of possible amyloidosis at [place]. The patient has been seen in conjunction with Dr. Mccormick, who agrees with the assessment and plan. - Patient Problems (1) Diuretic-induced hypokalemia Current Visit: Yes Status: Resolved (2) Chronic heart failure with preserved ejection fraction (HFpEF) Current Visit: Yes Status: Chronic (3) Atrial fibrillation Current Visit: Yes Status: Chronic (4) Chronic edema Current Visit: Yes Status: Chronic (5) History of CVA (cerebrovascular accident) Current Visit: Yes Status: Chronic (6) CKD (chronic kidney disease) Current Visit: Yes Status: Chronic (7) Hypertension Current Visit: Yes Status: Chronic Subjective Date of service: 09/15/19 Interval history: Patient is lying in bed in [facility]. She has no complaints. Potassium normalized. Remains in SB on telemetry. Objective Last Vital Signs Temp 98.4 F 09/15/19 07:14 Pulse 52 L 09/15/19 07:14 Resp 18 09/15/19 07:14 BP 96/49 09/15/19 07:14 Pulse Ox 96 09/15/19 07:14 - Physical Examination General: No Apparent Distress HEENT: Positive: PERRL Neck: Positive: neck supple Cardiac: Positive: irregularly irregular Lungs: Positive: Decreased Breath Sounds Neuro: Positive: Grossly Intact Abdomen: Positive: Unremarkable /Rectal: Other (deferred) Skin: Positive: Clear Musculoskeletal: Normal Range of Motion Extremities: Present: normal - Labs and Meds Comprehensive Metabolic Panel 09/15/19 Range/Units 05:40 Sodium 133 L (137-145) mmol/L Potassium 4.1 D (3.6-5.0) mmol/L Chloride 91.7 L (98-107) mmol/L Carbon Dioxide 30 (22-30) mmol/L BUN 17 (7-17) mg/dL Creatinine 1.0 (0.7-1.2) mg/dL Glucose 86 (65-100) mg/dL Calcium 8.7 (8.4-10.2) mg/dL - Imaging and Cardiology EKG: report reviewed (Atrial fibrillation, old inferior infarct, old anterior infarct) Echo: report reviewed (09/14/19: Echo from 09/14/2019 reviewed: EF 50 percent, dilated hypokinetic RV, dilated LA & RA, moderate LV thickening, pleural effusion, mild to moderate MR, severe TR, suspicion for amyloidosis. )
[2019-09-15 16:40] VITALS: BP 102/51
[2019-09-16] MEDS ORDERED: POTASSIUM CHLORIDE ER 20 MEQ TAB PO SCH (10:00)
== END 2019-09-15 14:55 | disposition home or self-care (01) ==
LOC: ED 09:08 → 2B-ACE 11:47
PROVIDERS: ADMIT Internal Medicine; ATTEND Internal Medicine
DX: E87.6 Hypokalemia (principal); I13.0 Hypertensive heart and chronic kidney disease with heart failure and stage 1 through stage 4 chronic kidney disease, or unspecified chronic kidney disease; I50.9 Heart failure, unspecified; N18.3 Chronic kidney disease, stage 3 (moderate); I48.20 Chronic atrial fibrillation, unspecified; E87.1 Hypo-osmolality and hyponatremia; I87.2 Venous insufficiency (chronic) (peripheral); D69.6 Thrombocytopenia, unspecified; Z86.73 Personal history of transient ischemic attack (TIA), and cerebral infarction without residual deficits; Z98.891 History of uterine scar from previous surgery; R60.9 Edema, unspecified
CPT/HCPCS: 36415; 71046; 80048; 80053; 83735; 83880; 84132; 85007; 85025; 85027; 87116; 93005; 93010; 93306; 96365; 96366; 99284; G0378; J3480; J7030